=== PATIENT | male | born 1965 | race Caucasian/White ===

== ENCOUNTER → 2021-09-25 15:29 | Outpatient (BNVA) | payer MEDICARE, MEDICAID, SELFPAY | PROVIDERS: PCP Family Medicine; Visit Provider Anesthesiology | DX: M46.1 Sacroiliitis, not elsewhere classified (principal); M54.17 Radiculopathy, lumbosacral region; G89.4 Chronic pain syndrome; M51.36 Other intervertebral disc degeneration, lumbar region; M47.816 Spondylosis without myelopathy or radiculopathy, lumbar region | CPT/HCPCS: 99202 ==

== ENCOUNTER 2021-11-07 06:04 | Outpatient (REF) | payer MEDICARE, SELFPAY ==
--- NOTE | ~2021-11-07 | FL_ITS ---
EXAMINATION: XR FLUOROSCOPY WITH IMAGES CLINICAL INFORMATION: M46.1 - Sacroiliitis, not elsewhere classified COMPARISON: None. TECHNIQUE: Fluoroscopy performed by Dr. Vinicius Braun. Fluoroscopy time: 0.1 minutes. Cumulative Dose: 8.68 mGy. DAP: 2.36 Gy-cm2. Images: 1. FINDINGS: Spinal needle overlies mid to lower left SI joint. There is contrast in the periarticular soft tissues with probable early intra-articular contrast. FL/FL guidance in treatment room IMPRESSION: Fluoroscopy for pain management procedure.
== END 2021-11-07 06:05 | disposition home or self-care (01) ==
LOC: HO.RADIR 06:04
PROVIDERS: Visit Provider Anesthesiology
DX: M46.1 Sacroiliitis, not elsewhere classified (principal); M54.17 Radiculopathy, lumbosacral region; G89.4 Chronic pain syndrome; M51.36 Other intervertebral disc degeneration, lumbar region; M47.816 Spondylosis without myelopathy or radiculopathy, lumbar region
CPT/HCPCS: 27096

== ENCOUNTER → 2021-11-13 16:22 | Outpatient (BNVA) | payer MEDICARE, SELFPAY | PROVIDERS: PCP Family Medicine; Visit Provider Anesthesiology | DX: M46.1 Sacroiliitis, not elsewhere classified (principal); M54.17 Radiculopathy, lumbosacral region; G89.4 Chronic pain syndrome; M51.36 Other intervertebral disc degeneration, lumbar region; M47.816 Spondylosis without myelopathy or radiculopathy, lumbar region | CPT/HCPCS: Q3014 ==

== ENCOUNTER → 2021-12-11 16:12 | Outpatient (BNVA) | payer MEDICARE, SELFPAY | PROVIDERS: PCP Family Medicine; Visit Provider Anesthesiology | DX: M54.50 Low back pain, unspecified (principal); G89.29 Other chronic pain; M46.1 Sacroiliitis, not elsewhere classified; M54.17 Radiculopathy, lumbosacral region; M51.36 Other intervertebral disc degeneration, lumbar region; M47.816 Spondylosis without myelopathy or radiculopathy, lumbar region | CPT/HCPCS: 99212 ==